=== PATIENT | female | born 1990 | race Caucasian/White ===

== ENCOUNTER 2017-03-24 13:03 | Inpatient (IN) | payer BC ==
[~2017-03-24] VITALS: Ht 170.2 cm; Wt 101.8 kg
[2017-03-26] VITALS (20 sets, daily range): BP systolic 102–137; BP diastolic 58–82; PULSE 9–111; TEMP 97.4–98.2
[2017-03-26 06:45] LABS: MEAN CELL VOLUME 84 fl (80.0-100.0); MEAN CORPUSCULAR HGB CONC 33 g/dl (33.0-37.0); MEAN PLATELET VOLUME 10.6 fl (7.4-10.4); PLATELET COUNT 259 K/mm3 (130-400); RED BLOOD COUNT 3.85 M/mm3 (4.10-5.30); REDCELL DISTRIBUTION WIDTH-CV 13.6 % (11.5-14.5)
[2017-03-26 07:18] LABS: HEMATOCRIT 32.3 % (37.0-47.0); HEMOGLOBIN 10.7 g/dl (12.5-16.0); MEAN CORPUSCULAR HEMOGLOBIN 28 pg (27.0-31.0); WHITE BLOOD COUNT 20.9 K/mm3 (4.8-10.8)
[2017-03-26 07:19] LABS: ADD PATHOLOGY DIFF REVIEW NO
[2017-03-26] MEDS ORDERED: PRENATAL (07:19)
[2017-03-26 07:29] LABS: BAND 12 % (0-10); BASOPHIL 1 % (0-2); EOSINOPHIL 2 % (0-4); METAMYELOCYTE 2 % (0-0); NEUTROPHILS 55 % (42.0-75.2); PLATELET ESTIMATE NORMAL (NORMAL); TOTAL CELLS COUNTED 100
[2017-03-27 02:50] VITALS: BP 106/72; PULSE 76; TEMP 98.1
[2017-03-27 08:00] VITALS: BP 111/66; PULSE 96; TEMP 97.8
[2017-03-27] MEDS ORDERED: PERCOCET 325 MG1 TA2 PO (08:29)
[2017-03-27] MEDS ORDERED: IBU600 MG PO (08:29)
[2017-03-27 16:47] VITALS: BP 114/74; PULSE 83
[2017-03-27 20:15] VITALS: BP 119/69; PULSE 82; TEMP 97.8
[2017-03-28 07:40] VITALS: BP 113/70; PULSE 72; TEMP 98.9
== END 2017-03-28 15:15 | disposition home or self-care (01) | DRG 765 ==
LOC: OB 03-26 05:33
PROVIDERS: Obstetrics & Gynecology
PROC: 10D00Z1 Extraction of Products of Conception, Low, Open Approach (ICD-10-PCS; principal; 2017-03-26)
DX: O32.1XX2 Maternal care for breech presentation, fetus 2 (principal); O30.033 Twin pregnancy, monochorionic/diamniotic, third trimester; Z3A.37 37 weeks gestation of pregnancy; Z37.2 Twins, both liveborn
CPT/HCPCS: J0690; J1885; J2270; J2370; J2405; J2590; J2765; J7120

== ENCOUNTER 2021-05-11 05:34 | Inpatient (IN) | payer BC ==
[2021-05-11] VITALS (17 sets, daily range): BP systolic 105–131; BP diastolic 58–83; PULSE 69–93; TEMP 97.8–98.3
[~2021-05-11] VITALS: Ht 170.2 cm; Wt 107.7 kg
[~2021-05-11 05:34] MED LIST: IBU600 MG PO; PERCOCET 325 MG1 TA2 PO; PRENATAL
[2021-05-11 06:20] LABS: MEAN CELL VOLUME 84 fl (80.0-100.0); MEAN CORPUSCULAR HEMOGLOBIN 29 pg (27.0-31.0); MEAN CORPUSCULAR HGB CONC 35 g/dl (33.0-37.0); MEAN PLATELET VOLUME 9.9 fl (7.4-10.4); PLATELET COUNT 250 K/mm3 (130-400); RED BLOOD COUNT 4.14 M/mm3 (4.10-5.30); REDCELL DISTRIBUTION WIDTH-CV 14.9 % (11.5-14.5)
[2021-05-11 06:24] LABS: HEMATOCRIT 34.6 % (37.0-47.0)
[2021-05-11] MEDS ORDERED: NATURAL IRON65 MG (06:38)
[2021-05-11 06:47] LABS: BAND 2 % (0-10); LYMPHOCYTE 25 % (20.0-51.0); NEUTROPHILS 63 % (42.0-75.2); PLATELET ESTIMATE NORMAL (NORMAL)
[2021-05-12 00:45] VITALS: BP 107/72; PULSE 87; TEMP 98.9
[2021-05-12 05:10] VITALS: BP 102/65; PULSE 86; TEMP 98.7
[2021-05-12 08:10] VITALS: BP 101/42; PULSE 77; TEMP 98.2
[2021-05-12 17:15] VITALS: BP 118/72; PULSE 81; TEMP 98.7
[2021-05-12 20:15] VITALS: BP 113/60; PULSE 8; TEMP 98.1
[2021-05-13 08:45] VITALS: BP 124/76; PULSE 85; TEMP 98.4
[2021-05-13] MEDS ORDERED: IBU600 MG PO (08:53)
[2021-05-13] MEDS ORDERED: TYLENOL 500MG500 MG PO (08:54)
[2021-05-13] MEDS ORDERED: ROXICODONE 55 MG/TAB PO (08:54)
--- NOTE | 2021-05-13 09:50 | NUR ---
0940DISCHARGE INSTRUCTIONS REVIEWED WITH PATIENT. PATIENT VERBALIZED UNDERSTANDING. WILL NOTIFY THIS RN WHEN READY TO LEAVE.
--- NOTE | 2021-05-13 11:14 | NUR ---
1040ALL PERSONAL BELONGINGS GATHERED FROM PATIENT ROOM. PATIENT LEFT AMBULATORY AND IN NO APPARENT DISTRESS. PATIENT ACCOMPANIED BY SPOUSE AND THIS RN.
== END 2021-05-13 10:40 | disposition home or self-care (01) | DRG 788 ==
LOC: OB 05:34
PROVIDERS: ADMIT Obstetrics & Gynecology
PROC: 10D00Z1 Extraction of Products of Conception, Low, Open Approach (ICD-10-PCS; principal; 2021-05-11)
DX: O34.211 Maternal care for low transverse scar from previous cesarean delivery (principal); O99.02 Anemia complicating childbirth; D64.9 Anemia, unspecified; O99.344 Other mental disorders complicating childbirth; F41.9 Anxiety disorder, unspecified; Z3A.39 39 weeks gestation of pregnancy; Z37.0 Single live birth; Z23 Encounter for immunization
CPT/HCPCS: J0171; J0690; J1885; J2175; J2370; J2405; J2590; J7120